=== PATIENT | male | born 1995 | race Two or more races ===

== ENCOUNTER 2018-05-19 01:30 | Emergency (ER) | payer BC, OTHER ==
[~2018-05-19] VITALS: Ht 175.3 cm; Wt 99.0 kg
--- NOTE | 2018-05-19 01:48 | NUR ---
PT C/O N/V/D AND DIFFUSE ABD PAINx2 HOURS. PT STATES "I THINK I HAVE FOOD POISONING." STATES HE ATE [employer] THIS PM A COUPLE HOURS PRIOR. DENIES FEVERS/CHILLS. STATES UNABLE TO CURRENTLY TOLERATE PO INTAKE. MONITORING APPLIED. VSS. CALL LIGHT WITHIN REACH. AWAITING MD ASSESSMENT.
[2018-05-19] MEDS ORDERED: DICYCLOMINE 10 MG/ML, 2ML IM ONE (02:00)
[2018-05-19] MEDS ORDERED: PROMETHAZINE 25 MG/ML, 1ML IM ONE (02:00)
[2018-05-19] MEDS ORDERED: DICYCLOMINE 10 MG/ML, 2ML ONE (02:03)
[2018-05-19] MEDS ORDERED: PROMETHAZINE 25 MG/ML, 1ML ONE (02:03)
[2018-05-19] MEDS ORDERED: ACETAMINOPHEN 500 MG TABLET ONE (02:53)
[2018-05-19] MEDS ORDERED: ACETAMINOPHEN 500 MG TABLET PO ONE (03:00)
[2018-05-19 03:11] VITALS: BP 113/62
== END 2018-05-19 03:45 | disposition home or self-care (01) ==
LOC: ED 02:51
DX: R11.2 Nausea with vomiting, unspecified (principal); R10.84 Generalized abdominal pain
CPT/HCPCS: 96372; 99283; J0500; J2550